=== PATIENT | female | born 1965 | race African-American/Black ===

== ENCOUNTER 2016-11-19 00:41 | Observation (INO) | payer BC ==
[~2016-11-19] VITALS: Ht 170.2 cm; Wt 111.0 kg
[~2016-11-19 00:41] MED LIST: BIOFLEX TABLET1 EACH PO; CRANBERRY TABL1 EACH PO; FLAX SEED OIL1 EACH PO; GLUCOSAMINE CH1 EAC2 PO; METOPROLOL SUCC50 MG PO; OPTIFLEX-C400 MG PO; PRAVASTATIN SOD20 MG PO; ULTRAM50 MG PO; VITAMIN D2000 UNI1 PO; WOMEN'S DAILY1 EAC1 PO; ZESTORETIC 20-1 EAC1 PO; ZYRTEC10 M2 PO
[2016-11-19 01:18] LABS: HEMATOCRIT 42.6 % (36.0-46.0); MCH 29.1 PG (29.0-34.0); MCHC 32.4 G/DL (30.0-36.0); MCV 89.7 FL (83-99); MEAN PLAT.VOLUME 10.7 uM^3 (9.5-12.4); PLATELET COUNT 242 K/uL (156-360); RBC DIS.WIDTH-CV 14.7 % (11.8-14.6); RED BLOOD COUNT 4.75 M/uL (3.80-5.20); WHITE BLOOD COUNT 9.2 K/uL (4.1-10.2)
[2016-11-19 01:32] LABS: CHLORIDE 101 mEq/L (99-109); POTASSIUM 2.9 mEq/L (3.7-5.4); SODIUM 139 mEq/L (136-147)
[2016-11-19 01:35] LABS: GLUCOSE 108 mg/dL (70-99)
[2016-11-19 01:36] LABS: ANION GAP 14 MEQ/L (2-14); TOTAL BILIRUBIN 0.9 mg/dL (0.0-1.0)
[2016-11-19 01:38] LABS: ALKALINE PHOSPHATASE 99 IU/L (3-129); GFR ESTIMATE (CALCULATED) > 59 mL/min/
[2016-11-19 01:39] LABS: UREA NITROGEN (BUN) 21 mg/dL (9-23)
[2016-11-19 01:40] LABS: DIRECT BILIRUBIN 0.3 mg/dL (0.0-0.3); INTER. NORMALIZED RATIO 1.1; PTT 24.7 (25-32)
[2016-11-19 01:42] LABS: LIPASE 18 U/L (1.0-51.0)
[2016-11-19 01:44] LABS: TROP-I INTERPRETATION NEGATIVE; TROPONIN-I 0.13 ng/mL (0.0-0.30)
[2016-11-19 01:48] LABS: D-DIMER ELISA > 4.00 mg/L FEU (< 0.57)
[2016-11-19] MEDS ORDERED: ONE DAILY FOR1 EAC1 PO (08:38)
[2016-11-19] MEDS ORDERED: LOPRESSOR50 MG PO (08:39)
[2016-11-19] MEDS ORDERED: PROAIR HFA8.5 GM IH (08:40)
[2016-11-19 09:54] LABS: TROP-I INTERPRETATION NEGATIVE; TROPONIN-I 0.21 ng/mL (0.0-0.30)
[2016-11-19 09:57] VITALS: BP 163/91
[2016-11-19 10:00] VITALS: BP 163/91
[2016-11-19 11:25] LABS: METH RESISTANT S AUREUS PCR NEGATIVE (NEGATIVE); PROBE CHECK PASS; SPECIMEN PROCESSING CONTROL PASS
[2016-11-19 12:02] VITALS: BP 129/85
[2016-11-19 15:28] LABS: TROP-I INTERPRETATION NEGATIVE; TROPONIN-I 0.14 ng/mL (0.0-0.30)
[2016-11-19 16:00] VITALS: BP 149/85
[2016-11-19 20:00] VITALS: BP 171/93
[2016-11-19 22:00] VITALS: BP 166/100
[2016-11-20] VITALS: BP 163/99
[2016-11-20 01:35] VITALS: BP 184/83
[2016-11-20 04:32] VITALS: BP 145/75
[2016-11-20 07:06] LABS: HEMATOCRIT 37.5 % (36.0-46.0); MCH 28.9 PG (29.0-34.0); MCHC 32.5 G/DL (30.0-36.0); MCV 88.9 FL (83-99); MEAN PLAT.VOLUME 10.7 uM^3 (9.5-12.4); NRBC (%) 0.2 /100 WBC (0-0); PLATELET COUNT 204 K/uL (156-360); RBC DIS.WIDTH-CV 14.9 % (11.8-14.6); RBC DIS.WIDTH-SD 47.8 % (39-53); RED BLOOD COUNT 4.22 M/uL (3.80-5.20); WHITE BLOOD COUNT 8.3 K/uL (4.1-10.2)
[2016-11-20 07:20] VITALS: BP 141/87
[2016-11-20 07:22] LABS: ALKALINE PHOSPHATASE 74 IU/L (3-129); ANION GAP 12 MEQ/L (2-14); CHLORIDE 104 MEQ/L (99-109); GFR ESTIMATE (CALCULATED) > 59 mL/min/; GLUCOSE 104 mg/dL (70-99); POTASSIUM 3.1 MEQ/L (3.7-5.4); SAMPLE HEMOLYSIS CHECK 0; SAMPLE ICTERIC CHECK 0; SAMPLE LIPEMIA CHECK 0; SODIUM 141 MEQ/L (136-147); TOTAL BILIRUBIN 0.9 MG/DL (0.0-1.0); UREA NITROGEN (BUN) 15 mg/dL (9-23)
[2016-11-20 11:18] VITALS: BP 121/75
[2016-11-20] MEDS ORDERED: ELIQUIS5 MG PO (13:33)
== END 2016-11-20 15:20 | disposition home or self-care (01) ==
LOC: EME 00:41 → EDOF 07:35 → 4EAST 07:35 → 4WEST 09:51 → 4EAST 11-20 01:14
PROVIDERS: Internal Medicine
DX: I26.99 Other pulmonary embolism without acute cor pulmonale (principal); I82.441 Acute embolism and thrombosis of right tibial vein; E87.6 Hypokalemia; M79.89 Other specified soft tissue disorders; I10 Essential (primary) hypertension; J30.2 Other seasonal allergic rhinitis; E78.5 Hyperlipidemia, unspecified; E66.9 Obesity, unspecified; Z68.38 Body mass index [BMI] 38.0-38.9, adult; Z86.718 Personal history of other venous thrombosis and embolism
CPT/HCPCS: 71020; 71275; 80048; 80053; 80076; 83690; 83880; 84484; 85027; 85379; 85610; 85730; 87641; 93005; 93306; 93970; 94640; 99281; 99285; G0378; J0360